=== PATIENT | male | born 1985 | race African-American/Black ===

== ENCOUNTER 2018-09-07 10:17 | Emergency (ER) | payer MEDICAID, OTHER ==
[~2018-09-07] VITALS: Ht 177.8 cm; Wt 65.9 kg
[2018-09-07 10:27] VITALS: BP 131/74
[2018-09-07] MEDS ORDERED: acetaminophen 325mg tablet PO ONE (11:00)
--- NOTE | 2018-09-07 11:17 | NUR ---
RELIEVING RN FOR BREAK, PT IS RESTING QUIETLY ON GURNEY, MEDICATED PER PROVIDER ORDER
[2018-09-07] MEDS ORDERED: CEPH500C5 PO (11:38)
== END 2018-09-07 11:51 | disposition home or self-care (01) ==
LOC: ER 10:19
DX: L03.115 Cellulitis of right lower limb (principal); Z56.0 Unemployment, unspecified; Z59.0 Homelessness; Z79.899 Other long term (current) drug therapy
CPT/HCPCS: 73630; 99283

== ENCOUNTER 2018-09-09 03:30 | Emergency (ER) | payer MEDICAID, OTHER ==
[~2018-09-09] VITALS: Ht 175.3 cm; Wt 47.7 kg
[~2018-09-09 03:30] MED LIST: CEPH500C5 PO
[2018-09-09 03:33] VITALS: BP 123/90
--- NOTE | 2018-09-09 03:46 | NUR ---
SECURITY WAS ATTEMPTING TO ESCORT PATIENT OFF PROPERTY FOR LOITERING WHEN PT DECIDED HE NEEDED TO BE SEEN FOR FOOT PAIN. AT FIRST IT WAS HIS RIGHT FOOT AND THEN HE DECIDED IT WAS THE LEFT. WHEN ASKED HOW LONG IT HAS BEEN BOTHERING HIM HE STATES "MINOR POSSESSION" PT WAS ASKED AGAIN AND STATES "IT HASN'T BEEN OFF FOR THIS LONG" - THE 3RD TIME PT WAS ASKED HE STATES "3 DAYS" - PTS TOE NAILS ARE LONG AND EXTEND PAST THE TOE - HE IS EDUCATED ON KEEPING HIS NAILS TRIMMED SHORTER.
[2018-09-09] MEDS ORDERED: ALBU18HF2 INH (10:17)
== END 2018-09-09 04:09 | disposition home or self-care (01) ==
LOC: ER 03:31
DX: M79.672 Pain in left foot (principal); Z59.0 Homelessness; Z56.0 Unemployment, unspecified; Z79.2 Long term (current) use of antibiotics
CPT/HCPCS: 99284

== ENCOUNTER 2018-09-09 14:43 | Emergency (ER) | payer MEDICAID ==
[~2018-09-09] VITALS: Ht 175.3 cm; Wt 54.0 kg
[~2018-09-09 14:43] MED LIST changes: +ALBU18HF2 INH
--- NOTE | 2018-09-09 15:12 | NUR ---
Pt provided W/ bandage and verbalized instructions abotu there use.
[2018-09-09 15:35] VITALS: BP 120/75
== END 2018-09-09 15:40 | disposition home or self-care (01) ==
LOC: ER 14:43
DX: S90.424A Blister (nonthermal), right lesser toe(s), initial encounter (principal); Z79.899 Other long term (current) drug therapy; Z59.0 Homelessness; Z56.0 Unemployment, unspecified; X58.XXXA Exposure to other specified factors, initial encounter; Y93.89 Activity, other specified; Y92.89 Other specified places as the place of occurrence of the external cause; Y99.8 Other external cause status
CPT/HCPCS: 99282

== ENCOUNTER 2018-09-10 08:47 | Emergency (ER) | payer MEDICAID ==
[~2018-09-10] VITALS: Ht 182.9 cm; Wt 161.0 kg
[2018-09-10 09:11] VITALS: BP 109/69
--- NOTE | 2018-09-10 09:20 | NUR ---
GAUZE DRESSING TO RIGHT FOOT. PT HOMELESS, ASKED FOR FOOD
== END 2018-09-10 09:39 | disposition home or self-care (01) ==
LOC: ER 08:47
DX: S90.424D Blister (nonthermal), right lesser toe(s), subsequent encounter (principal); Z79.2 Long term (current) use of antibiotics; Z79.899 Other long term (current) drug therapy; Z59.0 Homelessness; Z56.0 Unemployment, unspecified; X58.XXXD Exposure to other specified factors, subsequent encounter
CPT/HCPCS: 99282

== ENCOUNTER 2018-09-10 13:48 | Emergency (ER) | payer MEDICAID ==
[~2018-09-10] VITALS: Ht 177.8 cm; Wt 64.3 kg
[2018-09-10 13:51] VITALS: BP 106/71
== END 2018-09-10 14:42 | disposition home or self-care (01) ==
LOC: ER 13:49
DX: S90.424D Blister (nonthermal), right lesser toe(s), subsequent encounter (principal); Z60.2 Problems related to living alone; Z56.0 Unemployment, unspecified; Z79.2 Long term (current) use of antibiotics; Z79.899 Other long term (current) drug therapy; X58.XXXD Exposure to other specified factors, subsequent encounter
CPT/HCPCS: 99281

== ENCOUNTER 2018-09-11 19:20 | Emergency (ER) | payer MEDICAID ==
[~2018-09-11] VITALS: Ht 175.3 cm; Wt 62.7 kg
[2018-09-11 20:10] VITALS: BP 116/80
--- NOTE | 2018-09-11 20:59 | NUR ---
pt is demanding that I call an ER MD over from main ER to look at his foot blister. i told him that they are attending to emergencies in the main ER and he will be seen accordingly as his name is on the providers "to be seen list". he told me he will keep yelling "nurse!" until i d oo something and that I need to do my job (and get a dr in the room).
[2018-09-11] MEDS ORDERED: neomy sulf/bacitrac zn/polymixin b oint 14.2 gm tube TP SCH (21:30)
== END 2018-09-11 22:22 | disposition home or self-care (01) ==
LOC: ER 19:20
DX: S90.821A Blister (nonthermal), right foot, initial encounter (principal); Z60.2 Problems related to living alone; Z56.0 Unemployment, unspecified; Z59.0 Homelessness; Z79.899 Other long term (current) drug therapy; X58.XXXA Exposure to other specified factors, initial encounter; Y93.89 Activity, other specified; Y92.89 Other specified places as the place of occurrence of the external cause; Y99.8 Other external cause status
CPT/HCPCS: 99283

== ENCOUNTER 2018-09-12 09:33 | Emergency (ER) | payer MEDICAID ==
[~2018-09-12] VITALS: Ht 175.3 cm; Wt 63.2 kg
[2018-09-12 09:36] VITALS: BP 145/72
== END 2018-09-12 09:53 | disposition home or self-care (01) ==
LOC: ER 09:33
DX: L08.89 Other specified local infections of the skin and subcutaneous tissue (principal); Z59.0 Homelessness; Z56.0 Unemployment, unspecified
CPT/HCPCS: 99281

== ENCOUNTER 2018-09-13 23:11 | Emergency (ER) | payer MEDICAID ==
[~2018-09-13] VITALS: Ht 175.3 cm; Wt 53.5 kg
[2018-09-13 23:13] VITALS: BP 123/79
--- NOTE | 2018-09-13 23:54 | NUR ---
SECURITY ADVISED ME THAT THE PATIENT WAS WANDERING IN THE LOBBY AND MAKING OTHER PATIENTS UNCOMFORTABLE. A FAMILY MEMBER OF ANOTHER PATIENT ASKED MR. BERNAL TO PLEASE NOT WALK SO CLOSELY TO HIS AND WHEN HE DIDN'T RESPECT HIS REQUEST THE FAMILY MEMBER PUSHED HIM OUT OF THE WAY. MR. BERNAL THEN EXITED THE BUILDING AND HASN'T RETURNED.
== END 2018-09-13 23:56 | disposition left against medical advice (07) ==
LOC: ER 23:11
DX: G89.29 Other chronic pain (principal); M79.671 Pain in right foot; Z53.21 Procedure and treatment not carried out due to patient leaving prior to being seen by health care provider; Z79.899 Other long term (current) drug therapy

== ENCOUNTER 2018-09-16 13:20 | Emergency (ER) | payer MEDICAID ==
[~2018-09-16] VITALS: Ht 175.3 cm; Wt 64.2 kg
[2018-09-16 13:48] VITALS: BP 136/80
== END 2018-09-16 16:31 | disposition home or self-care (01) ==
LOC: ER 13:21
DX: S60.561A Insect bite (nonvenomous) of right hand, initial encounter (principal); S60.562A Insect bite (nonvenomous) of left hand, initial encounter; Z59.0 Homelessness; Z56.0 Unemployment, unspecified; Z79.899 Other long term (current) drug therapy; W57.XXXA Bitten or stung by nonvenomous insect and other nonvenomous arthropods, initial encounter; Y93.89 Activity, other specified; Y92.89 Other specified places as the place of occurrence of the external cause; Y99.8 Other external cause status
CPT/HCPCS: 99281

== ENCOUNTER 2018-09-16 21:24 | Emergency (ER) | payer MEDICAID ==
[~2018-09-16 21:24] MED LIST changes: -CEPH500C5 PO
== END 2018-09-16 21:39 | disposition left against medical advice (07) ==
LOC: ER 21:27
DX: M79.673 Pain in unspecified foot (principal); Z53.21 Procedure and treatment not carried out due to patient leaving prior to being seen by health care provider

== ENCOUNTER 2018-09-17 19:37 | Emergency (ER) | payer MEDICAID ==
[~2018-09-17] VITALS: Ht 175.3 cm; Wt 65.0 kg
[~2018-09-17 19:37] MED LIST changes: +CEPH500C5 PO
[2018-09-17 20:11] VITALS: BP 112/72
== END 2018-09-17 20:22 | disposition home or self-care (01) ==
LOC: ER 19:38
DX: M79.671 Pain in right foot (principal); Z00.00 Encounter for general adult medical examination without abnormal findings; Z60.2 Problems related to living alone; Z59.0 Homelessness; Z56.0 Unemployment, unspecified; Z79.899 Other long term (current) drug therapy
CPT/HCPCS: 99281

== ENCOUNTER 2018-09-20 01:12 | Emergency (ER) | payer MEDICARE, MEDICAID ==
[~2018-09-20] VITALS: Ht 175.3 cm; Wt 62.7 kg
[~2018-09-20 01:12] MED LIST changes: -CEPH500C5 PO
[2018-09-20 01:16] VITALS: BP 119/79
[2018-09-20] MEDS ORDERED: diphenhydrAMINE 25mg capsule PO ONE (02:45)
== END 2018-09-20 02:58 | disposition home or self-care (01) ==
LOC: ER 01:13
DX: L29.9 Pruritus, unspecified (principal); Z56.0 Unemployment, unspecified; Z59.0 Homelessness
CPT/HCPCS: 99282; Q0163

== ENCOUNTER 2018-09-22 22:17 | Emergency (ER) | payer MEDICARE, MEDICAID ==
[~2018-09-22] VITALS: Ht 175.3 cm; Wt 58.2 kg
[2018-09-22 22:35] VITALS: BP 114/79
== END 2018-09-23 04:57 | disposition left against medical advice (07) ==
LOC: ER 22:17
DX: M79.604 Pain in right leg (principal); Z53.21 Procedure and treatment not carried out due to patient leaving prior to being seen by health care provider

== ENCOUNTER 2018-09-25 01:56 | Emergency (ER) | payer MEDICARE, MEDICAID ==
[~2018-09-25] VITALS: Ht 175.3 cm; Wt 59.1 kg
[2018-09-25 02:02] VITALS: BP 120/72
== END 2018-09-25 02:52 | disposition home or self-care (01) ==
LOC: ER 01:59
DX: L03.115 Cellulitis of right lower limb (principal); Z48.00 Encounter for change or removal of nonsurgical wound dressing; Z79.899 Other long term (current) drug therapy; Z59.0 Homelessness; Z56.0 Unemployment, unspecified; Z60.2 Problems related to living alone
CPT/HCPCS: 99284

== ENCOUNTER 2018-09-27 17:36 | Emergency (ER) | payer MEDICAID, MEDICARE ==
[~2018-09-27] VITALS: Ht 175.3 cm; Wt 8.2 kg
[2018-09-27 17:48] VITALS: BP 125/80
--- NOTE | 2018-09-27 18:36 | NUR ---
ALEXIA Contreras attempted to call patient to room, Pt NIL.
== END 2018-09-27 19:11 | disposition left against medical advice (07) ==
LOC: ER 17:37
DX: Z00.8 Encounter for other general examination (principal); Z53.21 Procedure and treatment not carried out due to patient leaving prior to being seen by health care provider; Z79.899 Other long term (current) drug therapy

== ENCOUNTER 2018-09-30 01:01 | Emergency (ER) | payer MEDICARE ==
[~2018-09-30] VITALS: Ht 175.3 cm; Wt 50.4 kg
[2018-09-30 01:05] VITALS: BP 125/86
== END 2018-09-30 02:40 | disposition home or self-care (01) ==
LOC: ER 01:01
DX: R10.84 Generalized abdominal pain (principal); Z59.0 Homelessness; Z56.0 Unemployment, unspecified
CPT/HCPCS: 99281

== ENCOUNTER 2018-09-30 23:45 | Emergency (ER) | payer MEDICARE | END 2018-10-01 01:53 | disposition left against medical advice (07) | LOC: ER 23:48 | DX: Z00.8 Encounter for other general examination (principal); Z53.21 Procedure and treatment not carried out due to patient leaving prior to being seen by health care provider ==

== ENCOUNTER 2018-10-01 22:02 | Emergency (ER) | payer MEDICARE ==
[~2018-10-01] VITALS: Ht 175.3 cm; Wt 64.0 kg
[2018-10-01 22:21] VITALS: BP 111/76
[2018-10-01] MEDS ORDERED: diphenhydrAMINE 25mg capsule PO ONE (23:45)
== END 2018-10-01 23:50 | disposition home or self-care (01) ==
LOC: ER 22:03
DX: L29.9 Pruritus, unspecified (principal); Z56.0 Unemployment, unspecified; Z59.0 Homelessness
CPT/HCPCS: 99282

== ENCOUNTER 2018-10-03 21:37 | Emergency (ER) | payer MEDICARE | END 2018-10-04 | disposition left against medical advice (07) | LOC: ER 21:38 | DX: G43.909 Migraine, unspecified, not intractable, without status migrainosus (principal); Z53.21 Procedure and treatment not carried out due to patient leaving prior to being seen by health care provider ==

== ENCOUNTER 2018-10-04 00:38 | Emergency (ER) | payer MEDICARE ==
[~2018-10-04] VITALS: Ht 175.3 cm; Wt 65.0 kg
[2018-10-04 00:39] VITALS: BP 122/75
[2018-10-04] MEDS ORDERED: acetaminophen 325mg tablet PO ONE (00:40)
== END 2018-10-04 00:57 | disposition home or self-care (01) ==
LOC: ER 00:39
DX: R51 Headache (principal); Z59.0 Homelessness; Z56.0 Unemployment, unspecified
CPT/HCPCS: 99282

== ENCOUNTER 2018-10-06 19:46 | Emergency (ER) | payer MEDICARE | END 2018-10-06 21:56 | disposition left against medical advice (07) | LOC: ER 19:46 | DX: M79.673 Pain in unspecified foot (principal); Z53.21 Procedure and treatment not carried out due to patient leaving prior to being seen by health care provider ==

== ENCOUNTER 2018-10-08 00:35 | Emergency (ER) | payer MEDICARE | END 2018-10-08 00:55 | disposition left against medical advice (07) | LOC: ER 00:35 | DX: L29.9 Pruritus, unspecified (principal); Z53.21 Procedure and treatment not carried out due to patient leaving prior to being seen by health care provider ==

== ENCOUNTER 2018-10-08 23:21 | Emergency (ER) | payer MEDICARE ==
[~2018-10-08] VITALS: Ht 175.3 cm; Wt 61.9 kg
[2018-10-08 23:27] VITALS: BP 113/61
== END 2018-10-09 00:05 | disposition home or self-care (01) ==
LOC: ER 23:21
DX: L29.8 Other pruritus (principal); Z59.0 Homelessness; Z56.0 Unemployment, unspecified
CPT/HCPCS: 99281

== ENCOUNTER 2018-10-09 19:26 | Emergency (ER) | payer MEDICARE, MEDICAID | END 2018-10-09 20:11 | disposition left against medical advice (07) | LOC: ER 19:29 | DX: M79.673 Pain in unspecified foot (principal); Z60.2 Problems related to living alone; Z59.0 Homelessness; Z56.0 Unemployment, unspecified; Z79.899 Other long term (current) drug therapy | CPT/HCPCS: 99281 ==

== ENCOUNTER 2018-10-09 21:36 | Emergency (ER) | payer MEDICARE, MEDICAID | END 2018-10-09 21:57 | disposition home or self-care (01) | LOC: ER 21:37 | DX: M79.671 Pain in right foot (principal); Z60.2 Problems related to living alone; Z59.0 Homelessness; Z56.0 Unemployment, unspecified; Z79.899 Other long term (current) drug therapy | CPT/HCPCS: 99281 ==

== ENCOUNTER 2018-10-09 22:45 | Emergency (ER) | payer MEDICARE | END 2018-10-09 23:07 | disposition home or self-care (01) | LOC: ER 22:46 | DX: Z00.00 Encounter for general adult medical examination without abnormal findings (principal); M79.671 Pain in right foot; Z60.2 Problems related to living alone; Z59.0 Homelessness; Z56.0 Unemployment, unspecified; Z79.899 Other long term (current) drug therapy | CPT/HCPCS: 99281 ==

== ENCOUNTER 2019-08-02 17:19 | Emergency (ER) | payer MEDICARE, MEDICAID ==
[~2019-08-02] VITALS: Ht 188 cm; Wt 63.6 kg
[~2019-08-02 17:19] MED LIST changes: +BENZ1TAB7 PO; +DIVA250T8 PO; +HALO10TA13 PO; +MV-M1TAB19 PO
[2019-08-02 18:16] LABS: BASOPHILS # (AUTO) 0.1 X10'3 (0-0.2); BASOPHILS % (AUTO) 0.7 % (0-1); EOSINOPHILS % (AUTO) 0.3 % (0-6); HEMATOCRIT 40.6 % (42.0-52.0); HEMOGLOBIN 13.7 g/dl (14.0-17.9); LYMPHOCYTES # (AUTO) 1.3 X10'3 (1.1-4.8); LYMPHOCYTES % (AUTO) 12.6 % (21-51); MEAN CORPUSCULAR HGB CONC 33.9 g/dL (33.0-36.5); MEAN CORPUSCULAR VOLUME 94.3 FL (78-98); MEAN PLATELET VOLUME 6.9 FL (7.4-10.4); MONOCYTES # (AUTO) 1.2 X10'3 (0-0.9); MONOCYTES % (AUTO) 12.1 % (2-12); NEUTROPHILS # (AUTO) 7.4 X10'3 (1.8-7.7); NEUTROPHILS % (AUTO) 74.3 % (42-75); PLATELET COUNT 203 X10'3 (140-440); RED CELL DISTRIBUTION WIDTH 12.7 % (11.5-14.5)
[2019-08-02 18:18] LABS: CLARITY,URINE CLEAR (Clear); COLOR,URINE YELLOW (Yellow); GLUCOSE, URINE NEGATIVE (Neg); KETONES,URINE NEGATIVE (Neg); LEUKOCYTE ESTERASE ,URINE NEGATIVE (Neg); NITRITES, URINE NEGATIVE (Neg); OCCULT BLOOD,URINE NEGATIVE (Neg); PROTEIN,URINE NEGATIVE (Neg); UROBILINOGEN,URINE 0.2 E.U/dL (0.2-1.0)
[2019-08-02 18:19] LABS: UA COLLECTION TYPE CLN CATCH MIDSTREAM
[2019-08-02] MEDS ORDERED: DIVA-81 PO (18:26)
[2019-08-02] MEDS ORDERED: BENZ1TAB7 PO (18:26)
[2019-08-02] MEDS ORDERED: HALO10TA13 PO (18:26)
[2019-08-02 18:27] LABS: ALANINE AMINOTRANSFERASE 36 U/L (12-78); ALBUMIN 4.2 G/DL (3.4-5.0); ALBUMIN/GLOBULIN RATIO 1.1 (1.1-1.5); ALKALINE PHOSPHATASE 78 IU/L (46-116); ANION GAP 7 (8-16); ASPARTATE AMINO TRANSFERASE 58 U/L (10-37); BILIRUBIN,TOTAL 0.6 MG/DL (0.1-1.0); BLOOD UREA NITROGEN 11 MG/DL (7-18); BUN/CREATININE RATIO 12.9 (5.4-32.0); CALCIUM 9.2 MG/DL (8.5-10.1); CHLORIDE 104 MMOL/L (99-107); CREATININE 0.85 MG/DL (0.60-1.10); ETHANOL < 0.010 GM/DL (0.0-0.010); GLUCOSE 118 MG/DL (70-104); POTASSIUM 3.8 MMOL/L (3.5-5.1); SODIUM 143 MMOL/L (135-145); TOTAL CARBON DIOXIDE 32.4 MMOL/L (24-32); TOTAL PROTEIN 7.9 G/DL (6.4-8.2); eGFR > 90 ML/MIN
[2019-08-02 18:29] LABS: URINE AMPHETAMINE SCREEN NEGATIVE (Neg); URINE BARBITUATE SCREEN NEGATIVE (Neg); URINE BENZODIAZEPINES SCREEN NEGATIVE (Neg); URINE CANNABINOID SCREEN POSITIVE (Neg); URINE COCAINE SCREEN NEGATIVE (Neg); URINE METHADONE SCREEN NEGATIVE (Neg); URINE OPIATE SCREEN NEGATIVE (Neg); URINE PHENCYCLIDINE SCREEN NEGATIVE (Neg)
--- NOTE | 2019-08-02 18:30 | NUR ---
Pt sitting calmly in bed, looking at the floor. Dietary called to bring tray for pt since he was admitted after dinner orders were placed.
[2019-08-02] MEDS: benztropine 1mg tablet PO SCH (20:31)
[2019-08-02] MEDS ORDERED: haloperidol 5mg tablet PO SCH (21:00)
[2019-08-02] MEDS ORDERED: divalproex sod 250mg ER (24-hour) tablet PO SCH (21:00)
--- NOTE | 2019-08-02 21:00 | NUR ---
Pt states he is here because "my cousin had to let me go". Per report, pt had not been medication compliant with family member, then had jumped off a banister and scared the children, at which point the pt eloped from his cousin's home and arrived at [facility]. Pt states that "I take my meds on the inside, but not the outside." When asked why, pt responded, "That is just how it goes." Pt stated after he left his cousin's house he went to [facility] "saw a lot of people I knew, said hi and gave hugs" then went to "walk around the library." Pt is medication compliant and cooperative with care. Mood: "oh, I'm doing alright.; Affect: Flat, Behavior: Cooperative, Responding to IS; +AH "they don't bother me"; Eye Contact: Intermittent.
--- NOTE | 2019-08-03 00:35 | NUR ---
Pt sleeping, breathing unlabored, no distress noted.
--- NOTE | 2019-08-03 02:20 | NUR ---
Pt sleeping, no signs of distress.
--- NOTE | 2019-08-03 05:05 | NUR ---
Pt new onset intermittent, strong cough. Mask given, pt currently wearing it.
[2019-08-03 05:28] VITALS: BP 119/79
--- NOTE | 2019-08-03 08:08 | NUR ---
Pt moved from ER bed 27 into ER bed 24.
--- NOTE | 2019-08-03 08:19 | NUR ---
Pt awake and eating independently.
--- NOTE | 2019-08-03 08:34 | NUR ---
Pt moved to ER bed 21.
[2019-08-03] MEDS: benztropine 1mg tablet PO SCH (09:01)
--- NOTE | 2019-08-03 10:45 | NUR ---
Pt sleeping on L side. RR equal and nonlabored. Will Continue to monitor.
[2019-08-03] MEDS ORDERED: HALO100A2 IM (13:42)
== END 2019-08-03 11:49 | disposition home or self-care (01) ==
LOC: ER 17:19
DX: S06.9X9A Unspecified intracranial injury with loss of consciousness of unspecified duration, initial encounter (principal); F20.9 Schizophrenia, unspecified; Z60.2 Problems related to living alone; Z59.0 Homelessness; Z56.0 Unemployment, unspecified; Z79.899 Other long term (current) drug therapy; X58.XXXA Exposure to other specified factors, initial encounter; Y93.89 Activity, other specified; Y92.89 Other specified places as the place of occurrence of the external cause; Y99.8 Other external cause status
CPT/HCPCS: 36415; 80053; 80305; 80320; 81003; 85025; 99285

== ENCOUNTER 2019-08-03 08:20 | Inpatient (IN) | payer MEDICARE, MEDICAID ==
[~2019-08-03] VITALS: Ht 175.3 cm; Wt 72.0 kg
[~2019-08-03 08:20] MED LIST changes: -ALBU18HF2 INH; +DIVA-81 PO; -DIVA250T8 PO; -MV-M1TAB19 PO
[2019-08-03] MEDS ORDERED: magnesium hydroxide 30ml (MOM) UD suspension PO PRN (12:05)
[2019-08-03] MEDS ORDERED: loperamide 2mg capsule PO PRN (12:05)
[2019-08-03] MEDS ORDERED: mag hydrox/Alum hydrox/simeth 30ml oral suspension PO PRN (12:05)
[2019-08-03] MEDS ORDERED: acetaminophen 325mg tablet PO PRN ×2 (12:05)
[2019-08-03 12:12] VITALS: BP 124/76
[2019-08-03] MEDS ORDERED: HALO100A2 IM (13:42)
--- NOTE | 2019-08-03 13:43 | NUR ---
Pt admitted to [facility] room 325A at 1150 from ER overflow. Ambulated onto unit accompanied by security and PCT. Pt presents as disorganized, mumbling constantly to himself, somewhat resistant to care, refused to shower, did change into clean hospital scrubs, 2 RN skin check performed. Pt was discharged to his cousin's from [facility] on 08/01/19, he refused to take his meds and jumped off a bookcase frightening cousin's children, then eloped. Cousin called [employer], pt was placed on a 5150 by Outreach team and brought into ER on 08/02/19. Addendum: 08/03/19 at 1353 by Maria Rose RN (Lee) Pt denied all symptoms though appeared to be responding to internal stimuli when first came onto the unit. When asked pt why he was here he answered, "I don't wanna talk about it."
[2019-08-03 19:19] VITALS: BP 124/86
[2019-08-03] MEDS: divalproex sod 250mg ER (24-hour) tablet PO SCH (21:15)
[2019-08-03] MEDS: benztropine 1mg tablet PO SCH (21:15)
[2019-08-03] MEDS: haloperidol 5mg tablet PO SCH (21:16)
[2019-08-03] MEDS: hydrOXYzine 25 MG tablet PO PRN (21:16)
--- NOTE | 2019-08-04 00:01 | NUR ---
Nursing Progress Note: Camila Tong Legal hold: 5150 Client on involuntary status for GD Report received from VIANEY Alexandre with use of SBAR: Why are they here: Patient admitted to [facility] room 325A at 1150 from ER overflow. Ambulated onto unit accompanied by security and PCT. Pt presents as disorganized, mumbling constantly to himself, somewhat resistant to care, refused to shower, did change into clean hospital scrubs, 2 RN skin check performed. Patient was discharged to his cousin's H on 08/01/19. he refused to take his meds and jumped off a bookcase frightening cousin's children, then eloped. Cousin called [employer]. Patient was placed on a 5150 by Outreach team and brought into ER on 08/02/19. Patient denied all symptoms though appeared to be responding to internal stimuli when first came onto the unit. When asked pt why he was here he answered, "I don't wanna talk about it." Assessment What has happened this shift: This patient is pacing the hallway. He makes intermittent eye contact. Patient is friendly to this rewriter. The patient exhibits disorganized thought process. The patient describes "playing football from the sideline while wearing a blanket." This patient exhibits little ability to carry on a cohesive conversation. The patient presents with some depression. The patient denies suicidal or homicidal ideation. This patient is medication compliant. This patient was able to eat his full dinner. The patient did request a shower. The patient denies any audible or visual hallucination. He is a poor historian. S/I, H/I: Denies. Sleep: New on the unit this visit. ADL's: Fair. Some prompting needed. Group attendance: Unknown. Were meds taken: Patient is medication compliant. Any med S/E: None noterd. Mental Status Exam Appearance: Somewhat disheveled. Eye contact: Poor Behavior: Patient is pacing the hallways. Speech: Quiet, normal rate and rhythm. Mood: Depressed. Affect: Flat. Thought process: Disorganized. Thought Content: Food, shower, football. Cognition: Tangential. Insight: Poor. Judgment: Poor. Interventions: None. PRN's used: None. Therapeutic interventions: Introduced self and established rapport, maintained a safe and therapeutic environment, ensured contract for safety, provided clear and simple instructions, attempted to reorient to reality, monitored behavior and need for intervention, provided positive encouragement, and maintained Q 15 min safety checks. Restraints/seclusion/emergency medication: N/A Justification of Continued Inpatient Treatment: Pt. requires interruption of current crisis, medication adjustments, and a safe and supportive environment.
[2019-08-04 08:02] VITALS: BP 118/70
[2019-08-04] MEDS: benztropine 1mg tablet PO SCH ×2 (08:48→21:15)
--- NOTE | 2019-08-04 15:57 | NUR ---
Influenza nasal swab done per RN and taken to lab per RN
--- NOTE | 2019-08-04 17:38 | NUR ---
Nursing Progress Note: Camila Tong Legal hold: 5150 Client on involuntary status for GD Report received from VIANEY Brice with use of SBAR: Why are they here: Patient admitted to [facility] room 325A at 1150 from ER overflow. Ambulated onto unit accompanied by security and PCT. Pt presents as disorganized, mumbling constantly to himself, somewhat resistant to care, refused to shower, did change into clean hospital scrubs, 2 RN skin check performed. Patient was discharged to his cousin's from [facility] on 08/01/19. He refused to take his meds and jumped off a bookcase frightening cousin's children, then eloped. Cousin called [employer]. Patient was placed on a 5150 by Outreach team and brought into ER on 08/02/19. Patient denied all symptoms though appeared to be responding to internal stimuli when first came onto the unit. When asked pt why he was here he answered, "I don't wanna talk about it." Assessment What has happened this shift: Pt is awake this morning and pacing the halls. He attended breakfast and took medication. Pt then paced the halls. When RN talks to pt he turns the other way. RN turned and walked with him and then he started answering RN questions. Pt denies SI/HI, AH/VH, however, pt responds to internal stimuli and talk to himself. When questioned, he states I just in my converstation. Pt tested for influenza A as his roomate is Flu A +. Pt showed RN a picture he morgan and later asked to take a shower. He then continued to pace the halls. S/I, H/I: Denies. A/V H: Denies but responds to internal stimuli. Talks to himself all day Sleep: 6.75 per noc shift assessment ADL's: Needs some encouragement. Group attendance: No Were meds taken: Yes Any med S/E: No. Mental Status Exam Appearance: Wearing green unit scrubs. Showered today Eye contact: Poor Behavior: Guarded, restless Speech: Soft, mumbled Mood: Im good Affect: Flat. Thought process: Disorganized. Tangential. Thought Content: Unable to assess. Im just in my conversation Cognition: AxOx3 Insight: Poor. Judgment: Poor. Interventions: None. PRN's used: None. Therapeutic interventions: Introduced self and established rapport, maintained a safe and therapeutic environment, ensured contract for safety, provided clear and simple instructions, attempted to reorient to reality, monitored behavior and need for intervention, provided positive encouragement, and maintained Q 15 min safety checks. Restraints/seclusion/emergency medication: N/A Justification of Continued Inpatient Treatment: Pt. requires interruption of current crisis, medication adjustments, and a safe and supportive environment.
[2019-08-04 19:00] VITALS: BP 123/73
[2019-08-04] MEDS: divalproex sod 250mg ER (24-hour) tablet PO SCH (21:14)
[2019-08-04] MEDS: hydrOXYzine 25 MG tablet PO PRN (21:15)
[2019-08-04] MEDS: haloperidol 5mg tablet PO SCH (21:16)
--- NOTE | 2019-08-04 21:55 | NUR ---
Nursing Progress Note: Camila Tong Legal hold: 5150 Client on involuntary status for GD Report received from VIANEY Reid with use of SBAR: Why are they here: Patient admitted to [facility] room 325A at 1150 from ER overflow. Ambulated onto unit accompanied by security and PCT. Pt presents as disorganized, mumbling constantly to himself, somewhat resistant to care, refused to shower, did change into clean hospital scrubs, 2 RN skin check performed. Patient was discharged to his cousin's H on 08/01/19. he refused to take his meds and jumped off a bookcase frightening cousin's children, then eloped. Cousin called [employer]. Patient was placed on a 5150 by Outreach team and brought into ER on 08/02/19. Patient denied all symptoms though appeared to be responding to internal stimuli when first came onto the unit. When asked pt why he was here he answered, "I don't wanna talk about it." Assessment What has happened this shift: This patient is ambulating the hallways as is his standard and practice. Patient is well oriented, he responds to internal stimuli, patient denies H/I, S/I, or hallucinations. Patients thought process is still disorganized but less so than the previous night. Patients affect is flat. He is extremely cooperative with staff and he is medication compliant. Patient eats dinner and some snacks. S/I, H/I: Denies. Sleep: New on the unit this visit. ADL's: Fair. Some prompting needed. Group attendance: Unknown. Were meds taken: Patient is medication compliant. Any med S/E: None noted. Mental Status Exam Appearance: Clean, he is wearing green hospital scrubs. Eye contact: Poor Behavior: Patient is pacing the hallways. Speech: Quiet, normal rate and rhythm. Mood: Depressed. Affect: Flat. Thought process: Disorganized. Thought Content: Discussing where he was born and lives. Cognition: Tangential. Insight: Poor. Judgment: Poor. Interventions: None. PRN's used: None. Therapeutic interventions: Introduced self and established rapport, maintained a safe and therapeutic environment, ensured contract for safety, provided clear and simple instructions, attempted to reorient to reality, monitored behavior and need for intervention, provided positive encouragement, and maintained Q 15 min safety checks. Restraints/seclusion/emergency medication: N/A Justification of Continued Inpatient Treatment: Pt. requires interruption of current crisis, medication adjustments, and a safe and supportive environment.
[2019-08-05 07:52] VITALS: BP 115/56
[2019-08-05] MEDS: benztropine 1mg tablet PO SCH ×2 (08:37→20:09)
[2019-08-05] MEDS ORDERED: haloperidol decanoate***LONG-ACTING*** 100mg/ml **IM only** inj. IM ONE (15:30)
--- NOTE | 2019-08-05 17:52 | NUR ---
Nursing Progress Note: Legal hold: 5149 Client on involuntary status for DTS Report received from nurse with use of SBAR: Kathy Marques RN Why are they here: Pt. transferred from [facility] on 5150 for DTS after pt. stated, "I feel like I'm going to kill myself. I've been hearing voices and electrical sounds tell me to hurt myself. I don't think I would be safe if I left here." Pt. also reported H/I and A/MONZON that tell him to hurt himself and others. Pt. is positive for amphetamines, and reports smoking meth 2 days ago. He has a history of paranoid schizophrenia. Assessment What has happened this shift: Patient is observed in his room sleeping at change of shift. When asked he states that he is doing well, denies any needs and is thankful for services received while here. He joins others in the group room for meals but quickly retreats back to his room once he is done eating. Patient spends the day isolating to his room until the afternoon when he begins to frantically pace the noonan. He wrings his fingers and darts his eyes. Patient states that he is worried because he feels like his roommate does not know where he is. He requests PRN, states Atarax is ineffective. Ativan administered. S/I, H/I: Denies A/VH: Denies Sleep: 6hrs NOC and rested during the day ADL's: Independent Group attendance: No Were meds taken: Yes Any med S/E: None reported or observed Mental Status Exam Appearance: Neat and appropriately dressed in hospital attire. Eye contact: Fair Behavior: Cooperative, pleasant, isolative, guarded Speech: Soft, responds minimally to questions Mood: Depressed Affect: Constricted Thought process: Poverty of thought Thought Content: Worried about his roommate not knowing where he is, discharge Cognition: A&O X4 Insight: Poor Judgment: Poor Interventions PRN's used: Motrin, Ativan Therapeutic interventions: Maintained a safe and therapeutic environment, ensured contract for safety, monitored behaviors and need for intervention, provided clear and simple instructions, attempted to reorient to reality as needed, encouraged participation on the unit, and maintained Q 15min safety checks. Restraints/seclusion/emergency medication: N/A Justification of Continued Inpatient Treatment: Per ALEXIA Mcclellan, pt. does not have a safe plan for discharge and has a history of impulsive S/A. He requires medication adjustments and a safe and supportive environment.
[2019-08-05 19:47] VITALS: BP 122/75
[2019-08-05] MEDS: divalproex sod 250mg ER (24-hour) tablet PO SCH (20:09)
[2019-08-05] MEDS: haloperidol 5mg tablet PO SCH (20:09)
--- NOTE | 2019-08-05 23:28 | NUR ---
Nursing Progress Note: Legal hold: 5150 Client on involuntary status for GD Report received from VIANEY Reid with use of SBAR: Why are they here: Patient admitted to [facility] room 325A at 1150 from ER overflow. Ambulated onto unit accompanied by security and PCT. Pt presents as disorganized, mumbling constantly to himself, somewhat resistant to care, refused to shower, did change into clean hospital scrubs, 2 RN skin check performed. Patient was discharged to his cousin's [facility] on 08/01/19. he refused to take his meds and jumped off a bookcase frightening cousin's children, then eloped. Cousin called [employer]. Patient was placed on a 5150 by Outreach team and brought into ER on 08/02/19. Patient denied all symptoms though appeared to be responding to internal stimuli when first came onto the unit. When asked pt why he was here he answered, "I don't wanna talk about it." Assessment What has happened this shift: The patient was pacing the hallway at shift change. He waved as I walked by. The patient continues his pacing, sometimes walking in his room, but does not stay. He has become more cooperative with staff and medication use. At snack time, the patient will enter the group room and sit as far as possible from other clients. As soon as he eats, he goes back to pacing. the patient is still pacing at this time. S/I, H/I: Denies. AV/H: Patient denies, but is seen responding to IS. Sleep: see sleep assessment. ADL's: Fair. Some prompting needed. Group attendance: No groups at night.. Were meds taken: Patient is medication compliant. Any med S/E: None noted. Mental Status Exam Appearance: Clean, wears unit fabian scrubs. Eye contact: Poor Behavior: Patient is pacing the hallways. Speech: Quiet, normal rate and rhythm. Mood: Depressed. Affect: Flat. Thought process: Disorganized. Thought Content: Unknown. Cognition: Tangential. Insight: Poor. Judgment: Poor. Interventions: None. PRN's used: None. Therapeutic interventions: Introduced self and established rapport, maintained a safe and therapeutic environment, ensured contract for safety, provided clear and simple instructions, attempted to reorient to reality, monitored behavior and need for intervention, provided positive encouragement, and maintained Q 15 min safety checks. Restraints/seclusion/emergency medication: N/A Justification of Continued Inpatient Treatment: Pt. requires interruption of current crisis, medication adjustments, and a safe and supportive environment.
[2019-08-06 07:58] VITALS: BP 115/70
[2019-08-06] MEDS: benztropine 1mg tablet PO SCH ×2 (08:23→20:04)
--- NOTE | 2019-08-06 16:00 | NUR ---
DISCHARGE PLANNING Spoke with [facility], regarding when a clinician can meet with Camila to complete a Comp Assessment. She reported she will try to get a clinician to come tomorrow. Left message with Camila's cousin, Lexii (ph# [phone]) to inquire if Camila is able to return to her home. IRAJ Estrada
--- NOTE | 2019-08-06 16:47 | NUR ---
Nursing Progress Note: [facility] Legal hold: 5150 Client on involuntary status for GD Report received from VIANEY Drake with use of SBAR: Why are they here: Patient admitted to [facility] from ER overflow. Ambulated onto unit accompanied by security and PCT. Pt presents as disorganized, mumbling constantly to himself. Patient was discharged to his cousin's on 08/01/19. He refused to take his meds and jumped off a bookcase frightening cousin's children, then eloped. Cousin called [employer]. Patient was placed on a 5150 by Outreach team and brought into ER on 08/02/19. Patient denied all symptoms though appeared to be responding to internal stimuli when first came onto the unit. When asked pt why he was here he answered, "I don't wanna talk about it." Assessment What has happened this shift: Pt sleeping in bed at change of shift. He was amendable to do 1:1 assessment at bedside. He denies any SEs to medications and none were objectively observed. Pt eager to report that he got his Haldol Dec inj yesterday and shows this consumer loan underwriter his band aid. Pt mostly keeps to himself throughout the day and when consumer loan underwriter attempts conversation he will walk away muttering words under his breathe. S/I, H/I: Denies. AV/H: Patient denies, but is seen responding to IS. Sleep: 4.5hrs NOC ADL's: Fair hygiene. Prompting needed. Room is often dirty Group attendance: Yes, patio Were meds taken: Compliant Any med S/E: None reported nor observed Mental Status Exam Appearance: Clean Eye contact: Indirect Behavior: Paces, isolative Speech: Quiet, normal rate and rhythm, paucity Mood: States, Good Affect: Flat Thought process: poverty Thought Content: meds, snacks Cognition: Perseverates Insight: Poor Judgment: Poor Interventions: None. PRN's used: Therapeutic interventions: Introduced self and established rapport, maintained a safe and therapeutic environment, ensured contract for safety, provided clear and simple instructions, attempted to reorient to reality, monitored behavior and need for intervention, provided positive encouragement, and maintained Q 15 min safety checks. Restraints/seclusion/emergency medication: N/A Justification of Continued Inpatient Treatment: Pt. requires interruption of current crisis, medication adjustments, and a safe and supportive environment.
[2019-08-06 20:00] VITALS: BP 134/87
[2019-08-06] MEDS: haloperidol 5mg tablet PO SCH (20:03)
[2019-08-06] MEDS: divalproex sod 250mg ER (24-hour) tablet PO SCH (20:04)
--- NOTE | 2019-08-07 00:24 | NUR ---
Nursing Progress Note: Legal hold: 5150 Client on involuntary status for GD Report received from VIANEY Reid with use of SBAR: Why are they here: Patient admitted to [facility] room 325A at 1150 from ER overflow. Ambulated onto unit accompanied by security and PCT. Pt presents as disorganized, mumbling constantly to himself, somewhat resistant to care, refused to shower, did change into clean hospital scrubs, 2 RN skin check performed. Patient was discharged to his cousin's [facility] on 08/01/19. he refused to take his meds and jumped off a bookcase frightening cousin's children, then eloped. Cousin called [employer]. Patient was placed on a 5150 by Outreach team and brought into ER on 08/02/19. Patient denied all symptoms though appeared to be responding to internal stimuli when first came onto the unit. When asked pt why he was here he answered, "I don't wanna talk about it." Assessment What has happened this shift: Patient pacing at start of shift. He agrees to 1:1 in his room, but gives no information. All attempts at conversation fail. He always walks away mumbling. He continues to be as friendly and cooperative as he can, even smiles sometimes. In between pacing, he enters his room, but does not stay long. The patient is compliant with all meds and returns to pacing. He enters the group room for a snack, but sits in a corner by himself. S/I, H/I: Denies. AV/H: Denies. Sleep: see sleep assessment. ADL's: Fair. Some prompting needed. Group attendance: No groups at night.. Were meds taken: Patient is medication compliant. Any med S/E: None noted. Mental Status Exam Appearance: Clean, appears groomed, wears unit green scrubs. Eye contact: Poor to good. eye contact has gotten better Behavior: Patient is pacing the hallways. Speech: Quiet, normal rate and rhythm. Mood: "I don't know. Affect: Restricted. Thought process: Disorganized. Thought Content: Focus on snacks. Cognition: Tangential. Insight: Poor. Judgment: Poor. Interventions: None. PRN's used: None. Therapeutic interventions: Introduced self and established rapport, maintained a safe and therapeutic environment, ensured contract for safety, provided clear and simple instructions, attempted to reorient to reality, monitored behavior and need for intervention, provided positive encouragement, and maintained Q 15 min safety checks. Restraints/seclusion/emergency medication: N/A Justification of Continued Inpatient Treatment: Pt. requires interruption of current crisis, medication adjustments, and a safe and supportive environment.
[2019-08-07 07:00] VITALS: BP 116/73
[2019-08-07] MEDS: benztropine 1mg tablet PO SCH ×2 (08:36→20:06)
--- NOTE | 2019-08-07 14:56 | NUR ---
Initial: Pt admit on 5249 refusing to take meds w/ schizophrenia. Currently AOx2, confused per EMR. PO 100% avg regular diet meeting needs. LBM 08/03. No nutrition concerns at this time. Will continue to monitor. Rec: 1. continue regular diet 2. bowel care as needed 3. wt per rx Addendum: 08/07/19 at [address] Amended: Links added.
--- NOTE | 2019-08-07 15:16 | NUR ---
DISCHARGE PLANNING [facility] Clinician, Corinne, met with Camila today to complete Comp Assessment in order for him to get open to services at [facility]. Provided information and assisted Corinne with the interview as Camila is a poor historian. Medical Staff Assistant will refer Camila to [facility] again. He was unable to formulate a viable plan for food, clothing, or senior care during the assessment. Spoke to Camila's cousin, Lexii (ph# [phone]). Lexii reported she is going to try to assist Camila with finding housing and stated there are some openings at the [employer] that she is looking into. It is unclear how viable this plan is. Lexii reported Camila cannot return to her apartment as she received a complaint from the landlord about Camila when he stayed with her upon his last discharge. IRAJ Estrada
--- NOTE | 2019-08-07 17:09 | NUR ---
[facility]ing Progress Note[facility] hold: 5150 Client on involuntary status for GD Report received from VIANEY Chiu with use of SBAR: Why are they here: Patient admitted to [facility] from ER overflow. Ambulated onto unit accompanied by security and PCT. Pt presents as disorganized, mumbling constantly to himself. Patient was discharged to his cousin's on 08/01/19. He refused to take his meds and jumped off a bookcase frightening cousin's children, then eloped. Cousin called [employer]. Patient was placed on a 5150 by Outreach team and brought into ER on 08/02/19. Patient denied all symptoms though appeared to be responding to internal stimuli when first came onto the unit. When asked pt why he was here he answered, "I don't wanna talk about it." Assessment What has happened this shift: Received pt sleeping in bed at shift change. Pt. awakens for medication, but refuses breakfast, and continues to stay in bed. 1:1 was performed while patient was pacing hallways. Pt. states that he does hear some voices "off the top", rambles some other words that were not discernable. Patient ambulates hallways talking to himself. S/I, H/I: Denies. AV/H: + AH, RIS Sleep: 6 hrs NOC, napped in a.m. ADL's: Needs prompting to perform ADL's. Group attendance: Outside patio. Were meds taken: Yes. Any med S/E: None reported nor observed Mental Status Exam Appearance: Clean and neat in green scrubs. Eye contact: Indirect Behavior: Paces, isolative Speech: Quiet, normal rate and rhythm, paucity Mood: Euthymic. Affect: Blunted. Thought process: Disorganized. Thought Content: Food, snacks. Cognition: A&O Insight: Poor Judgment: Poor Interventions: PRN's used: None. Therapeutic interventions: Introduced self and established rapport, maintained a safe and therapeutic environment, ensured contract for safety, provided clear and simple instructions, attempted to reorient to reality, monitored behavior and need for intervention, provided positive encouragement, and maintained Q 15 min safety checks. Restraints/seclusion/emergency medication: N/A Justification of Continued Inpatient Treatment: Pt. requires interruption of current crisis, medication adjustments, and a safe and supportive environment.
[2019-08-07 20:00] VITALS: BP 125/75
[2019-08-07] MEDS: haloperidol 5mg tablet PO SCH (20:06)
[2019-08-07] MEDS: divalproex sod 250mg ER (24-hour) tablet PO SCH (20:06)
--- NOTE | 2019-08-07 21:18 | NUR ---
Nursing Progress Note: Legal hold: 5250 Client on involuntary status for GD Report received from VIANEY Reid with use of SBAR: Why are they here: Patient admitted to [facility] room 325A at 1150 from ER overflow. Ambulated onto unit accompanied by security and PCT. Pt presents as disorganized, mumbling constantly to himself, somewhat resistant to care, refused to shower, did change into clean hospital scrubs, 2 RN skin check performed. Patient was discharged to his cousin's [facility] on 08/01/19. he refused to take his meds and jumped off a bookcase frightening cousin's children, then eloped. Cousin called [employer]. Patient was placed on a 5150 by Outreach team and brought into ER on 08/02/19. Patient denied all symptoms though appeared to be responding to internal stimuli when first came onto the unit. When asked pt why he was here he answered, "I don't wanna talk about it." Assessment What has happened this shift: Patient continues to pass time pacing in the halls. He will wave and smile, but not stop and talk. He's receptive to care, but doesn't want to talk about himself. The patient interrupts his pacing long enough to eat snacks. When he's in his room he walks in circles without purpose. He continues to cooperate with Nursing as far as meds go, but walks off mumbling when asked a question. He denies hearing voices or SI. The patient paces until he gets tired then retires to his room. S/I, H/I: Denies. AV/H: Denies. Sleep: see sleep assessment. ADL's: Fair. Some prompting needed. Group attendance: No groups at night.. Were meds taken: Patient is medication compliant. Any med S/E: None noted. Mental Status Exam Appearance: Clean, appears groomed, wears unit green scrubs. Eye contact: Poor to good. eye contact has gotten better Behavior: Pacing, quiet, guarded. Speech: Quiet, mumbles, poverty Mood: No answer. Affect: Restricted. Thought process: Disorganized. Thought Content: Focus on snacks. Cognition: Tangential, disorganized. Insight: Poor. Judgment: Poor. Interventions: None. PRN's used: None. Therapeutic interventions: Introduced self and established rapport, maintained a safe and therapeutic environment, ensured contract for safety, provided clear and simple instructions, attempted to reorient to reality, monitored behavior and need for intervention, provided positive encouragement, and maintained Q 15 min safety checks. Restraints/seclusion/emergency medication: N/A Justification of Continued Inpatient Treatment: Pt. requires interruption of current crisis, medication adjustments, and a safe and supportive environment.
--- NOTE | 2019-08-08 07:19 | NUR ---
[facility] REFERRAL Faxed [facility] referral to [facility] office. IRAJ Estrada
[2019-08-08 07:39] VITALS: BP 102/61
[2019-08-08] MEDS ORDERED: haloperidol 1mg tablet PO ONE (08:10)
[2019-08-08] MEDS: benztropine 1mg tablet PO SCH ×2 (08:44→20:54)
--- NOTE | 2019-08-08 17:38 | NUR ---
Nursing Progress Note: [facility] Legal hold: 5250 Client on involuntary status for GD Report received from VIANEY Chiu with use of SBAR: Why are they here: Patient admitted to [facility] from ER overflow. Ambulated onto unit accompanied by security and PCT. Pt presents as disorganized, mumbling constantly to himself. Patient was discharged to his cousin's on 08/01/19. He refused to take his meds and jumped off a bookcase frightening cousin's children, then eloped. Cousin called [employer]. Patient was placed on a 5150 by Outreach team and brought into ER on 08/02/19. Patient denied all symptoms though appeared to be responding to internal stimuli when first came onto the unit. When asked pt why he was here he answered, "I don't wanna talk about it." Assessment What has happened this shift: Received patient sleeping in bed. Patient is withdrawn and isolates to his room for most of the day. He does walk the hallways at times, talking to himself. When asked if he was hearing voices, patient denied. Patient reported that he is just stating facts out loud. Patient then ended conversation and went into his room. Patient appears to have social anxiety, as he shies away from people that are walking his way, and isolates to his room to avoid awkward social situations. S/I, H/I: Denies. AV/H: Denies, RIS Sleep: 7 hrs NOC, napped in a.m. ADL's: Needs prompting to perform ADL's. Group attendance: Outside patio. Were meds taken: Yes. Any med S/E: None reported nor observed Mental Status Exam Appearance: Clean and neat black male with sparse facial hair, in unit attire. Eye contact: Indirect Behavior: Paces, isolative, withdrawn. Speech: Quiet. Speech tapers off into whispers at end of conversation. Mood: Euthymic. Affect: Blunted. Thought process: Disorganized. Thought Content: Food, snacks. Cognition: A&O Insight: Poor Judgment: Poor Interventions: PRN's used: None. Therapeutic interventions: Introduced self and established rapport, maintained a safe and therapeutic environment, ensured contract for safety, provided clear and simple instructions, attempted to reorient to reality, monitored behavior and need for intervention, provided positive encouragement, and maintained Q 15 min safety checks. Restraints/seclusion/emergency medication: N/A Justification of Continued Inpatient Treatment: Pt. requires interruption of current crisis, medication adjustments, and a safe and supportive environment.
[2019-08-08 20:00] VITALS: BP 130/81
[2019-08-08] MEDS: haloperidol 5mg tablet PO SCH (20:54)
[2019-08-08] MEDS: divalproex sod 250mg ER (24-hour) tablet PO SCH (20:54)
--- NOTE | 2019-08-09 00:45 | NUR ---
Nursing Progress Note: [facility] Legal hold: 5250 Client on involuntary status for GD Report received from VIANEY Bustamante with use of SBAR: Why are they here: Patient admitted to [facility] from ER overflow. Ambulated onto unit accompanied by security and PCT. Pt presents as disorganized, mumbling constantly to himself. Patient was discharged to his cousin's on 08/01/19. He refused to take his meds and jumped off a bookcase frightening cousin's children, then eloped. Cousin called [employer]. Patient was placed on a 5150 by Outreach team and brought into ER on 08/02/19. Patient denied all symptoms though appeared to be responding to internal stimuli when first came onto the unit. When asked pt why he was here he answered, "I don't wanna talk about it." Assessment What has happened this shift: Received patient up and walking the unit at change of shift. He keeps to himself pacing the hallways with his hand right next to his face and mumbling to himself at times. When asked how his day was patients stated "It's fine, thank you." Patient can be very difficult to understand at times as he talks in almost a whisper. He was compliant with HS medications and continued to pace halls after evening medications. Patient did eventually settle and put himself to bed. S/I, H/I: Denies. AV/H: Denies, RIS Sleep: Currently sleeping, see sleep assessment ADL's: Needs prompting to perform ADL's. Group attendance: No groups this shift Were meds taken: Yes. Any med S/E: None reported nor observed Mental Status Exam Appearance: Clean and neat black male with sparse facial hair, in unit attire. Eye contact: Indirect Behavior: Paces, isolative, withdrawn. Speech: Quiet, whispers. Mood: Euthymic. Affect: Blunted. Thought process: Disorganized. Thought Content: Food, snacks. Cognition: A&O Insight: Poor Judgment: Poor Interventions: PRN's used: None. Therapeutic interventions: Introduced self and established rapport, maintained a safe and therapeutic environment, ensured contract for safety, provided clear and simple instructions, attempted to reorient to reality, monitored behavior and need for intervention, provided positive encouragement, and maintained Q 15 min safety checks. Restraints/seclusion/emergency medication: N/A Justification of Continued Inpatient Treatment: Pt. requires interruption of current crisis, medication adjustments, and a safe and supportive environment.
[2019-08-09 08:00] VITALS: BP 111/64
[2019-08-09] MEDS: benztropine 1mg tablet PO SCH ×2 (08:06→20:37)
[2019-08-09] MEDS: haloperidol 1mg tablet PO SCH (08:07)
[2019-08-09] MEDS ORDERED: tuberculin, purif. prot. deriv. 5 units/0.1ml ID ONE (08:45)
--- NOTE | 2019-08-09 15:03 | NUR ---
Nursing Progress Note: Legal hold: 5250 Client on involuntary status for GD Report received from VIANEY Chiu with use of SBAR: Why are they here: Patient admitted to [facility] from ER overflow. Ambulated onto unit accompanied by security and PCT. Pt presents as disorganized, mumbling constantly to himself. Patient was discharged to his cousin's on 08/01/19. He refused to take his meds and jumped off a bookcase frightening cousin's children, then eloped. Cousin called [employer]. Patient was placed on a 5150 by Outreach team and brought into ER on 08/02/19. Patient denied all symptoms though appeared to be responding to internal stimuli when first came onto the unit. When asked pt why he was here he answered, "I don't wanna talk about it." Assessment What has happened this shift: Pt up and visible for breakfast and attended all meals and asked for milk and jase crackers outside of meal and snack times. Pt denies depression and S.I. Pt is observed talking to himself much of the time either sitting on his bed or pacing the unit which he has done a lot of today. Pt states, I talk to myself because its the memory kicking in Pt unable to explain what that means. Pt at times did hold his hand up next to his face which in the past he has stated was to block the cameras from seeing his face. Pt cooperative and no agitation today. S/I, H/I: Denies. AV/H: Denies, RIS Sleep: 5.25 hrs NOC, napped in a.m. ADL's: Needs prompting to perform ADL's. Group attendance: Outside patio. Were meds taken: Yes. Any med S/E: None reported nor observed Mental Status Exam Appearance: Clean and neat black male with sparse facial hair, in unit attire. Eye contact: Indirect Behavior: Paces, isolative, withdrawn. Speech: Quiet. Speech tapers off into whispers at end of conversation. Mood: Euthymic. Affect: Blunted. Thought process: Disorganized. Thought Content: Food, snacks. Cognition: A&O Insight: Poor Judgment: Poor Interventions: PRN's used: None. Therapeutic interventions: Introduced self and established rapport, maintained a safe and therapeutic environment, ensured contract for safety, provided clear and simple instructions, attempted to reorient to reality, monitored behavior and need for intervention, provided positive encouragement, and maintained Q 15 min safety checks. Restraints/seclusion/emergency medication: N/A Justification of Continued Inpatient Treatment: Pt. requires interruption of current crisis, medication adjustments, and a safe and supportive environment.
[2019-08-09 19:00] VITALS: BP 121/88
[2019-08-09] MEDS: haloperidol 5mg tablet PO SCH (20:36)
[2019-08-09] MEDS: traZODone 50mg tablet PO PRN (20:36)
[2019-08-09] MEDS: divalproex sod 250mg ER (24-hour) tablet PO SCH (20:36)
--- NOTE | 2019-08-10 02:28 | NUR ---
Nursing Progress Note: Legal hold: 5250 Client on involuntary status for GD Report received from VIANEY Bang with use of SBAR: Why are they here: Patient admitted to [facility] from ER overflow. Ambulated onto unit accompanied by security and PCT. Pt presents as disorganized, mumbling constantly to himself. Patient was discharged to his cousin's on 08/01/19. He refused to take his meds and jumped off a bookcase frightening cousin's children, then eloped. Cousin called [employer]. Patient was placed on a 5150 by Outreach team and brought into ER on 08/02/19. Patient denied all symptoms though appeared to be responding to internal stimuli when first came onto the unit. When asked pt why he was here he answered, "I don't wanna talk about it." Assessment What has happened this shift: Received patient up and walking the unit at change of shift. He keeps to himself pacing the hallway always having his hand up by his face asking he is talking to it or blocking something from view. Met with patient in his room for a 1:1 assessment. He reports his day was "Pretty good." When asked about hearing voices he stated "No nothing like that." When asked if he was having paranoid thinking he stated "No, nothing like that." again. Patient does appear to be responding to some type of internal stimuli. He is cooperative for all his evening mediations, and goes to bed shortly after taking them. S/I, H/I: Denies. AV/H: Denies, RIS Sleep: Currently sleeping, see sleep assessment ADL's: Needs prompting to perform ADL's. Group attendance: No groups this shift Were meds taken: Yes. Any med S/E: None reported nor observed Mental Status Exam Appearance: Clean and neat black male with sparse facial hair, in unit attire. Eye contact: Indirect Behavior: Paces, isolative, withdrawn. Speech: Quiet, whispers. Mood: Euthymic. Affect: Blunted. Thought process: Disorganized. Thought Content: Food (James crackers and milk), snacks. Cognition: A&O Insight: Poor Judgment: Poor Interventions: PRN's used: Trazodone. Therapeutic interventions: Introduced self and established rapport, maintained a safe and therapeutic environment, ensured contract for safety, provided clear and simple instructions, attempted to reorient to reality, monitored behavior and need for intervention, provided positive encouragement, and maintained Q 15 min safety checks. Restraints/seclusion/emergency medication: N/A Justification of Continued Inpatient Treatment: Pt. requires interruption of current crisis, medication adjustments, and a safe and supportive environment.
[2019-08-10 07:32] VITALS: BP 110/61
[2019-08-10] MEDS: benztropine 1mg tablet PO SCH ×2 (09:21→20:45)
[2019-08-10] MEDS: haloperidol 1mg tablet PO SCH (09:22)
[2019-08-10] MEDS ORDERED: TRAZ-251 PO (13:57)
[2019-08-10] MEDS ORDERED: BENZ1TAB7 PO (13:57)
[2019-08-10] MEDS ORDERED: HALO100A2 IM (13:57)
[2019-08-10] MEDS ORDERED: DIVA-81 PO (13:57)
[2019-08-10] MEDS ORDERED: HALO5TAB PO (13:57)
--- NOTE | 2019-08-10 17:37 | NUR ---
Nursing Progress Note: [facility] Legal hold: 5250 Client on involuntary status for GD Report received from VIANEY Chiu with use of SBAR: Why are they here: Patient admitted to [facility] from ER overflow. Ambulated onto unit accompanied by security and PCT. Pt presents as disorganized, mumbling constantly to himself. Patient was discharged to his cousin's on 08/01/19. He refused to take his meds and jumped off a bookcase frightening cousin's children, then eloped. Cousin called [employer]. Patient was placed on a 5150 by Outreach team and brought into ER on 08/02/19. Patient denied all symptoms though appeared to be responding to internal stimuli when first came onto the unit. When asked pt why he was here he answered, "I don't wanna talk about it." Assessment What has happened this shift: Pt sedated and would not arouse for breakfast this am. Pt did awake to take am meds just after 0900 and then returned to sleep and was still sleeping at lunch. Pt finally got up for lunch a little late, but did eat. Pt denied depression and S.I. Pt mumbled a little to himself, but was not visible on the unit most of the day so was unable to be observed responding to internal stimuli. Pt denies a/v hallucinations. Pt did not attend groups. Pt was calm and cooperative. S/I, H/I: Denies. AV/H: Denies, RIS Sleep: napped throughout the day. ADL's: Needs prompting to perform ADL's. Group attendance: no Were meds taken: Yes. Any med S/E: None reported nor observed Mental Status Exam Appearance: Clean and neat black male with sparse facial hair, in unit attire. Eye contact: Indirect Behavior: Paces, isolative, withdrawn. Speech: Quiet. Speech tapers off into whispers at end of conversation. Mood: Euthymic. Affect: Blunted. Thought process: Disorganized. Thought Content: Food, snacks. Cognition: A&O Insight: Poor Judgment: Poor Interventions: PRN's used: None. Therapeutic interventions: Introduced self and established rapport, maintained a safe and therapeutic environment, ensured contract for safety, provided clear and simple instructions, attempted to reorient to reality, monitored behavior and need for intervention, provided positive encouragement, and maintained Q 15 min safety checks. Restraints/seclusion/emergency medication: N/A Justification of Continued Inpatient Treatment: Pt. requires interruption of current crisis, medication adjustments, and a safe and supportive environment.
[2019-08-10 20:03] VITALS: BP 117/76
[2019-08-10] MEDS: traZODone 50mg tablet PO PRN ×2 (20:45→23:08)
[2019-08-10] MEDS: divalproex sod 250mg ER (24-hour) tablet PO SCH (20:45)
[2019-08-10] MEDS: haloperidol 5mg tablet PO SCH (20:45)
--- NOTE | 2019-08-11 01:46 | NUR ---
Nursing Progress Note: [facility] Legal hold: 5250 Client on involuntary status for GD Report received from VIANEY Bang with use of SBAR: Why are they here: Patient admitted to [facility] from ER overflow. Ambulated onto unit accompanied by security and PCT. Pt presents as disorganized, mumbling constantly to himself. Patient was discharged to his cousin's on 08/01/19. He refused to take his meds and jumped off a bookcase frightening cousin's children, then eloped. Cousin called [employer]. Patient was placed on a 5150 by Outreach team and brought into ER on 08/02/19. Patient denied all symptoms though appeared to be responding to internal stimuli when first came onto the unit. When asked pt why he was here he answered, "I don't wanna talk about it." Assessment What has happened this shift: Patient is up pacing the unit at change of shift. He has his hand next to his face and it appears like he is mumbling to his hand. He is appropriate when greeted and states that his day was "good" He denies SI/HI, AH/VH. He spends snack time in the group room with his peers but does not interact with others. He is compliant with all HS medications. He gets up a short while after falling asleep and stated he was having trouble falling asleep and requested something else to help him go back to bed. Patient receives his second dose of Trazodone with good effect. S/I, H/I: Denies. AV/H: Denies, RIS Sleep: Currently sleeping, see sleep assessment ADL's: Needs prompting to perform ADL's. Group attendance: No groups this shift Were meds taken: Yes. Any med S/E: None reported nor observed Mental Status Exam Appearance: Clean and neat black male with sparse facial hair, in unit attire. Eye contact: Indirect Behavior: Paces, isolative, withdrawn. Speech: Quiet. Speech tapers off into whispers at end of conversation. Mood: Euthymic. Affect: Blunted. Thought process: Disorganized. Thought Content: Food, snacks. Cognition: A&O Insight: Poor Judgment: Poor Interventions: PRN's used: Trazodone x2 Therapeutic interventions: Introduced self and established rapport, maintained a safe and therapeutic environment, ensured contract for safety, provided clear and simple instructions, attempted to reorient to reality, monitored behavior and need for intervention, provided positive encouragement, and maintained Q 15 min safety checks. Restraints/seclusion/emergency medication: N/A Justification of Continued Inpatient Treatment: Pt. requires interruption of current crisis, medication adjustments, and a safe and supportive environment.
[2019-08-11 08:00] VITALS: BP 121/61
[2019-08-11] MEDS: benztropine 1mg tablet PO SCH ×2 (08:15→21:08)
[2019-08-11] MEDS: haloperidol 1mg tablet PO SCH (08:15)
--- NOTE | 2019-08-11 13:02 | NUR ---
PPD - negative PPD read today at 1255. no induration - negative result
--- NOTE | 2019-08-11 16:47 | NUR ---
Nursing Progress Note: [facility] Legal hold: 5250 Client on involuntary status for GD Report received from VIANEY Maki with use of SBAR: Why are they here: Patient admitted to [facility] from ER overflow. Ambulated onto unit accompanied by security and PCT. Pt presents as disorganized, mumbling constantly to himself. Patient was discharged to his cousin's on 08/01/19. He refused to take his meds and jumped off a bookcase frightening cousin's children, then eloped. Cousin called [employer]. Patient was placed on a 5150 by Outreach team and brought into ER on 08/02/19. Patient denied all symptoms though appeared to be responding to internal stimuli when first came onto the unit. When asked pt why he was here he answered, "I don't wanna talk about it." Assessment What has happened this shift: Pt received sleeping in his bed. Pt got up for breakfast. Pt denies depression and denies S.I. Pt also denies aud halluciations and states that when he is talking to himself, he is just talking. Pt is extremely tangential. And his speech is low and pressured and fast. Pt friendly and cooperative. Pt states he is discharging on Tuesday and is happy with that. S/I, H/I: Denies. AV/H: Denies, RIS Sleep: napped at times during the day. ADL's: Needs prompting to perform ADL's. Group attendance: partial Were meds taken: Yes. Any med S/E: None reported nor observed Mental Status Exam Appearance: Clean and neat black male with sparse facial hair, in unit attire. Eye contact: Indirect Behavior: Paces, isolative, withdrawn. Speech: Quiet. Speech tapers off into whispers at end of conversation. Mood: Euthymic. Affect: Blunted. Thought process: Disorganized. Thought Content: Food, snacks. Cognition: A&O Insight: Poor Judgment: Poor Interventions: PRN's used: None. Therapeutic interventions: Introduced self and established rapport, maintained a safe and therapeutic environment, ensured contract for safety, provided clear and simple instructions, attempted to reorient to reality, monitored behavior and need for intervention, provided positive encouragement, and maintained Q 15 min safety checks. Restraints/seclusion/emergency medication: N/A Justification of Continued Inpatient Treatment: Pt. requires interruption of current crisis, medication adjustments, and a safe and supportive environment.
[2019-08-11 19:00] VITALS: BP 134/92
[2019-08-11] MEDS: divalproex sod 250mg ER (24-hour) tablet PO SCH (21:07)
[2019-08-11] MEDS: haloperidol 5mg tablet PO SCH (21:08)
[2019-08-11] MEDS: traZODone 50mg tablet PO PRN (21:08)
--- NOTE | 2019-08-12 00:32 | NUR ---
Nursing Progress Note: Camila Miramontes Legal hold: [phone] Client on involuntary status for GD Report received from VIANEY Bang with use of SBAR: Why are they here: Patient admitted to [facility] from ER overflow. Ambulated onto unit accompanied by security and PCT. Pt presents as disorganized, mumbling constantly to himself. Patient was discharged to his cousin's on 08/01/19. He refused to take his meds and jumped off a bookcase frightening cousin's children, then eloped. Cousin called [employer]. Patient was placed on a 5150 by Outreach team and brought into ER on 08/02/19. Patient denied all symptoms though appeared to be responding to internal stimuli when first came onto the unit. When asked pt why he was here he answered, "I don't wanna talk about it." Assessment What has happened this shift: Patient is awake and oriented to person place and situation. Patient rests in bed and then paces the hallways. Patient is focused on food and discharge home. This patient is soft spoken, his speech is tangential in nature. Patient is upbeat and polite. Patient denies S/I, H/I, or any hallucinations. Patient is medication compliant. S/I, H/I: Denies. AV/H: Patient denies. Will tally in am. ADL's: Good, minor prompting needed. 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 Were med"s taken: Yes, patient is medication compliant. Any med S/E: None reported nor observed. Mental Status Exam Appearance: Clean and well groomed, wearing scrubs. Eye contact: Intermittent. Behavior: Paces, isolative, withdrawn. Speech: Soft and rapid speech. Mood: Calm and happy. Affect: Blunted. Thought process: Disorganized. Thought Content: Food, snacks. Cognition: A&O to person and place. Insight: Poor. Judgment: Poor. Interventions: PRN's used: None. Therapeutic interventions: Introduced self and established rapport, maintained a safe and therapeutic environment, ensured contract for safety, provided clear and simple instructions, attempted to reorient to reality, monitored behavior and need for intervention, provided positive encouragement, and maintained Q 15 min safety checks. Restraints/seclusion/emergency medication: N/A Justification of Continued Inpatient Treatment: Pt. requires interruption of current crisis, medication adjustments, and a safe and supportive environment.
[2019-08-12 07:00] VITALS: BP 109/66
[2019-08-12] MEDS: benztropine 1mg tablet PO SCH ×2 (08:30→20:17)
--- NOTE | 2019-08-12 17:08 | NUR ---
Nursing Progress Note: [facility] Legal hold: [phone] Client on involuntary status for GD Report received from VIANEY Brice with use of SBAR: Why are they here: Patient admitted to [facility] from ER overflow. Ambulated onto unit accompanied by security and PCT. Pt presents as disorganized, mumbling constantly to himself. Patient was discharged to his cousin's on 08/01/19. He refused to take his meds and jumped off a bookcase frightening cousin's children, then eloped. Cousin called [employer]. Patient was placed on a 5150 by Outreach team and brought into ER on 08/02/19. Patient denied all symptoms though appeared to be responding to internal stimuli when first came onto the unit. When asked pt why he was here he answered, "I don't wanna talk about it." Assessment What has happened this shift: Attempted 1:1 in the morning, but patient would not respond to questioning. Later, walking in the hallway, the patient states that he is thinking about music that one of his favorite artists just came out with a CD. Patient denies SI/HI, AVH. Patient spends most of the day isolating in his room sleeping on and off. S/I, H/I: Denies. AV/H: Denies, RIS Sleep: 5.5 hrs NOC, napped ADL's: Needs prompting to perform ADL's. Group attendance: No. Were meds taken: Yes. Any med S/E: None reported nor observed Mental Status Exam Appearance: Clean and neat black male wearing unit attire. Eye contact: Indirect Behavior: Paces, isolative, withdrawn. Speech: Quiet. Speech tapers off into whispers at end of conversation. Mood: Euthymic. Affect: Blunted. Thought process: Disorganized. Thought Content: Food, snacks. Discharge tomorrow. Cognition: A&O Insight: Poor Judgment: Poor Interventions: PRN's used: None. Therapeutic interventions: Introduced self and established rapport, maintained a safe and therapeutic environment, ensured contract for safety, provided clear and simple instructions, attempted to reorient to reality, monitored behavior and need for intervention, provided positive encouragement, and maintained Q 15 min safety checks. Restraints/seclusion/emergency medication: N/A Justification of Continued Inpatient Treatment: Pt. requires interruption of current crisis, medication adjustments, and a safe and supportive environment.
[2019-08-12 20:12] VITALS: BP 130/87
[2019-08-12] MEDS: divalproex sod 250mg ER (24-hour) tablet PO SCH (20:17)
[2019-08-12] MEDS: haloperidol 5mg tablet PO SCH (20:17)
--- NOTE | 2019-08-12 21:56 | NUR ---
Nursing Progress Note: [facility] Legal hold: 5250 Client on involuntary status for GD Report received from VIANEY Bang with use of SBAR: Why are they here: Patient admitted to [facility] from ER overflow. Ambulated onto unit accompanied by security and PCT. Pt presents as disorganized, mumbling constantly to himself. Patient was discharged to his cousin's on 08/01/19. He refused to take his meds and jumped off a bookcase frightening cousin's children, then eloped. Cousin called [employer]. Patient was placed on a 5150 by Outreach team and brought into ER on 08/02/19. Patient denied all symptoms though appeared to be responding to internal stimuli when first came onto the unit. When asked pt why he was here he answered, "I don't wanna talk about it." Assessment What has happened this shift: Patient up and pacing the noonan at shift change. Later the patient states that he would like this nurse to recheck his BP I dont think the tech did it right. BP checked and in normal limits. Patient denies SI/HI, AVH. Patient spends most of the day isolating in his room or pacing the noonan. S/I, H/I: Denies. AV/H: Denies, RIS Sleep: 5.5 hrs NOC, napped ADL's: Needs prompting to perform ADL's. Group attendance: No. Were meds taken: Yes. Any med S/E: None reported nor observed Mental Status Exam Appearance: Clean and neat black male wearing unit attire. Eye contact: Indirect Behavior: Paces, isolative, withdrawn. Speech: Quiet. Speech tapers off into whispers at end of conversation. Mood: Euthymic. Affect: Blunted. Thought process: Disorganized. Thought Content: Food, snacks. Discharge tomorrow. Cognition: A&O Insight: Poor Judgment: Poor Interventions: PRN's used: None. Therapeutic interventions: Introduced self and established rapport, maintained a safe and therapeutic environment, ensured contract for safety, provided clear and simple instructions, attempted to reorient to reality, monitored behavior and need for intervention, provided positive encouragement, and maintained Q 15 min safety checks. Restraints/seclusion/emergency medication: N/A Justification of Continued Inpatient Treatment: Pt. requires interruption of current crisis, medication adjustments, and a safe and supportive environment.
[2019-08-13 07:30] VITALS: BP 118/62
[2019-08-13] MEDS: benztropine 1mg tablet PO SCH (08:29)
--- NOTE | 2019-08-13 10:32 | NUR ---
Pt. discharged to [facility] driven [place] route relief [place]. Pt. discharged with all belongings. Pt. A&Ox4. Pt. shows no S&S of psychological or emotional distress. Pt. denies SI/HI, A/V hallucinations. Pt. signed discharge paper work and verbalizes understanding of medication regimen and discharge plan.
[2019-08-19] MEDS ORDERED: haloperidol decanoate***LONG-ACTING*** 100mg/ml **IM only** inj. IM SCH (09:00)
== END 2019-08-13 10:32 | disposition home or self-care (01) | DRG 885 ==
LOC: ADULT MH 08:20 → UNDOADMIN 11:56 → ADULT MH 11:56
PROVIDERS: ADMIT Psychiatry & Neurology Psychiatry; ATTEND Psychiatry & Neurology Psychiatry
DX: F20.1 Disorganized schizophrenia (principal); Z79.899 Other long term (current) drug therapy; Z87.820 Personal history of traumatic brain injury
CPT/HCPCS: 87081; 87502; 87503; Z7610